=== PATIENT | female | born 1985 | race Hispanic/Latino ===

== ENCOUNTER 2023-02-08 21:01 | Emergency (ER) | payer SELFPAY ==
[2023-02-08] MEDS ORDERED: Lidocaine 1% PF 5 ML VIAL ONE (21:12)
[2023-02-08] MEDS ORDERED: Bacitracin 1 PK ONE (21:43)
== END 2023-02-08 22:05 | disposition home or self-care (01) ==
LOC: ERS 21:01
DX: S61.214A Laceration without foreign body of right ring finger without damage to nail, initial encounter (principal); I10 Essential (primary) hypertension; W18.30XA Fall on same level, unspecified, initial encounter; Z79.899 Other long term (current) drug therapy
CPT/HCPCS: 12001